=== PATIENT | male | born 1980 | race Hispanic/Latino ===

== ENCOUNTER 2018-04-27 22:31 | Observation (INO) | payer BC ==
--- NOTE | 2018-04-27 23:25 | RAD ---
PA AND LATERAL CHEST: 04/27/18 INDICATION: Cough. COMPARISON: Prior exam dated 03/24/16. FINDINGS: The lungs are clear. The cardiomediastinal silhouette is within normal limits. No acute osseous abnor mality is evident. IMPRESSION: No acute cardiopulmonary abnormality. POS: AL
[2018-04-27] MEDS ORDERED: Dexamethasone 10 MG/ML VIAL ONE (23:55)
[2018-04-28] MEDS ORDERED: Magnesium 2 GM/50 ML BAG (IN WATER) ONE ×2 (00:09)
[2018-04-28 00:23] LABS: #Basophils 0.2 thou/uL (0.0-0.2); #Eosinphils 0.1 thou/uL (0.0-0.7); #Lymphocytes 4.9 thou/uL (1.20-3.40); #Monocytes 2.1 thou/uL (0.11-0.59); #Neutrophils 9.6 thou/uL (1.40-6.50); %Eosinophils 0.3 % (0.0-10.0); %Monocytes 12.3 % (0.0-10.0); %Neutrophils 57.4 % (42.0-75.0); Hemoglobin 13.9 g/dL (14.0-18.0); Mean Corpuscular HGB CONC 32.6 g/dL (32.0-36.0); Mean Corpuscular Hemoglobin 29.1 pg (27.0-31.0); Mean Corpuscular Volume 89.1 fL (78.0-98.0); Mean Platelet Volume 7.7 fL (7.4-10.4); Platelet Count 220 thou/uL (130-400); Red Blood Cell (RBC) Count 4.77 mill/uL (4.70-6.10); White Blood Cell (WBC) Count 16.8 thou/uL (4.8-10.8)
[2018-04-28 00:47] LABS: ALT (SGPT) 17 U/L (8-55); AST (SGOT) 17 U/L (5-34); Albumin 4.2 g/dL (3.5-5.0); Alkaline Phosphatase 40 U/L (40-150); Anion Gap 13 mmol/L (10-20); BUN (Urea Nitrogen) 15 mg/dL (8.9-20.6); Bilirubin, Total 0.4 mg/dL (0.2-1.2); CK (CPK) 281 U/L (30-200); Calc. Creatinine Clearance 0 mL/min (70-130); Calcium 9.1 mg/dL (7.8-10.44); Carbon Dioxide 25 mmol/L (22-29); Chloride 106 mmol/L (98-107); Estimated GFR-MDRD 78; Glucose 77 mg/dL (70-105); Potassium 3.8 mmol/L (3.5-5.1); Sodium 140 mmol/L (136-145)
[2018-04-28 00:52] LABS: Globulin 2.3 g/dL (2.4-3.5); Protein, Total 6.5 g/dL (6.0-8.3)
[2018-04-28] MEDS ORDERED: Acetaminophen 325 MG TAB PO PRN (02:11)
[2018-04-28] MEDS ORDERED: Ondansetron ODT 4 MG TAB SL PRN (02:11)
[2018-04-28] MEDS ORDERED: Sodium Chloride 0.9% 1,000 ML IV SCH (02:11)
[2018-04-28] MEDS ORDERED: Ondansetron PF 4 MG/2 ML Vial IVP PRN (02:11)
[2018-04-28 02:16] VITALS: BMI 30.2
[2018-04-28] MEDS ORDERED: Senokot S 8.6-50 MG TAB PO PRN (02:57)
[2018-04-28] MEDS: Sodium Chloride 0.9% 1,000 ML IV SCH ×2 (03:50→17:32)
[2018-04-28 04:15] LABS: #Basophils 0.1 thou/uL (0.0-0.2); #Lymphocytes 1.9 thou/uL (1.20-3.40); #Monocytes 0.6 thou/uL (0.11-0.59); #Neutrophils 12.8 thou/uL (1.40-6.50); %Basophils 0.5 % (0.0-1.0); %Eosinophils 0.1 % (0.0-10.0); %Lymphocytes 12.1 % (21.0-51.0); %Neutrophils 83.3 % (42.0-75.0); Hemoglobin 13.4 g/dL (14.0-18.0); Mean Corpuscular HGB CONC 32.3 g/dL (32.0-36.0); Mean Corpuscular Hemoglobin 29.4 pg (27.0-31.0); Mean Platelet Volume 8.2 fL (7.4-10.4); Platelet Count 209 thou/uL (130-400); Red Blood Cell (RBC) Count 4.57 mill/uL (4.70-6.10); White Blood Cell (WBC) Count 15.4 thou/uL (4.8-10.8)
--- NOTE | 2018-04-28 04:17 | HP ---
PRIMARY CARE PROVIDER: None. CHIEF COMPLAINT: Cough. HISTORY OF PRESENT ILLNESS: Mr. Vasques is a pleasant 37-year-old gentleman who was seen at [facility] on 04/28/2018. He reports having cough and wheezing over the last 2 weeks. This was preceded by what appears to be flu-like illness in his family members. The family members recovered but patient continues to have cough. He reports shortness of breath with exertion. He reports that the cough is nonproductive. He was seen by a healthcare provider at his workplace and was started on Medrol Dosepak. He reports that he continues to have cough and wheezing and therefore presented to the emergency room. He denies any fevers or chills at this time. He denies any chest pain. REVIEW OF SYSTEMS: All other systems were reviewed and found to be negative. PAST MEDICAL HISTORY: Significant for asthma. The patient reports that he has not been diagnosed with COPD in the past. PAST SURGICAL HISTORY: None. PSYCHIATRIC HISTORY: None. SOCIAL HISTORY: The patient smokes half a pack of cigarettes a day. He denies alcohol use or recreational drug use. FAMILY HISTORY: Significant for asthma in his father. ALLERGIES: PENICILLIN. CURRENT MEDICATIONS: Advair HFA as needed. PHYSICAL EXAMINATION: GENERAL: Mr. Vasques is awake and alert, not in acute distress. He is obese, with a BMI of 30.3. VITAL SIGNS: Blood pressure is 148/89, pulse 106, respiratory rate 20, and oxygen saturation 98% on room air. He is afebrile. EYES: No scleral icterus. No conjunctival pallor. ENT: Moist mucosal membranes. No oropharyngeal erythema or exudates. NECK: Supple, nontender, trachea is midline. RESPIRATORY: Accessory muscles of breathing are not active. Chest wall movements are symmetric bilaterally. LUNGS: Reveals diffuse expiratory wheeze. ABDOMEN: Soft, nontender, bowel sounds are heard. No hepatomegaly, no splenomegaly. CARDIOVASCULAR: S1 and S2 are heard, tachycardic and regular. Peripheral pulses palpable. No carotid bruit, no pericardial rub. NEUROLOGIC: Cranial nerves II through XII intact, deep tendon reflexes are 2+. MUSCULOSKELETAL: Power is 5/5 in all 4 extremities. SKIN: Multiple tattoos. LYMPHATIC: No cervical lymphadenopathy. PSYCHIATRIC: Normal mood, normal affect. Patient is oriented to person, place , and time. LABORATORY AND DIAGNOSTIC DATA: Mr. Vasques's labs and investigations were reviewed. I reviewed his chest x-ray, which does not show any pulmonary infiltrates. He has elevated CK of 281, otherwise unremarkable comprehensive metabolic profile, leukocytosis with 16,800 white cells, of which 57% are neutrophils, normocytic anemia with hemoglobin 13.9 and normal platelet count. ASSESSMENT AND PLAN: Mr. Vasques is a pleasant 37-year-old gentleman who was seen at [facility] on 04/28/2018. His problem list includes: 1. Asthma exacerbation: Mr. Vasques is presenting with asthma exacerbation, likely triggered by viral illness. At this point in time, he also has leukocytosis and superimposed bacterial infection cannot be ruled out, although the leukocytosis could be secondary to steroid use as well. He will be admitted to the hospital for further management including oxygen, steroids, bronchodilators, and antibiotics. He has received a dose of magnesium in the emergency room. We will repeat magnesium if needed. 2. Tobacco abuse: Patient has been counseled regarding tobacco cessation, we will start patient on nicotine replacement therapy. LEVEL OF RISK: Moderate. LEVEL OF COMPLEXITY: Moderate. MTDD
[2018-04-28 04:35] LABS: Anion Gap 12 mmol/L (10-20); BUN (Urea Nitrogen) 15 mg/dL (8.9-20.6); Calc. Creatinine Clearance 134 mL/min (70-130); Calcium 8.7 mg/dL (7.8-10.44); Carbon Dioxide 24 mmol/L (22-29); Chloride 106 mmol/L (98-107); Estimated GFR-MDRD 83; Glucose 154 mg/dL (70-105); Potassium 3.8 mmol/L (3.5-5.1); Sodium 138 mmol/L (136-145)
[2018-04-28] MEDS: Nicotine 14 MG PATCH TD SCH (06:09)
[2018-04-28] MEDS: Benzonatate 100 MG CAP PO SCH ×3 (08:40→20:38)
[2018-04-28] MEDS: Enoxaparin Sodium 40 MG/0.4 ML SYRINGE SC SCH (08:40)
[2018-04-28] MEDS: Chloraseptic Spray 180 ml Bottle PO PRN ×2 (12:35→17:33)
--- NOTE | 2018-04-28 12:53 | PDOC.PN ---
- Subjective Encounter Start Date: 04/28/18 Encounter Start Time: 12:00 Subjective: f/u on admission for asthma exacerbation -: Patient states he is not feeling much better - Objective Vital Signs & Weight: Vital Signs (12 hours) Temp Pulse Resp BP Pulse Ox 04/28/18 11:54 98.4 F 94 18 126/58 L 97 04/28/18 08:19 96 04/28/18 08:18 82 16 04/28/18 07:35 98.5 F 91 18 118/59 L 97 04/28/18 04:43 84 20 95 04/28/18 04:32 98.7 F 95 21 H 111/61 97 04/28/18 02:16 79 16 98 04/28/18 01:48 97.9 F 85 22 H 110/57 L 95 Weight Weight 95.708 kg I&O: 04/27/18 04/28/18 04/29/18 06:59 06:59 06:59 Intake Total 690 301 Output Total 575 1000 Balance 115 -699 Result Diagrams: 04/28/18 03:36 04/28/18 03:36 Phys Exam - Physical Examination HEENT: PERRLA, moist MMs Neck: no nodes, no JVD Respiratory: wheezing present diffuse expiratory wheezes, diminished BS in bases Cardiovascular: RRR, no significant murmur Gastrointestinal: soft, non-tender Musculoskeletal: no edema, pulses present Neurological: non-focal, normal sensation Lymphatic: no nodes Psychiatric: normal affect, A&O x 3 Skin: no rash, normal turgor Dx/Plan (1) Acute asthmatic bronchitis Code(s): J45.909 - UNSPECIFIED ASTHMA, UNCOMPLICATED Status: Acute (2) Tobacco abuse Code(s): Z72.0 - TOBACCO USE Status: Chronic - Plan cont current plan of care, continue antibiotics, respiratory therapy -: Neb txs, steroids, levaquin ordered -: Will continue to monitor, review labs * .
--- NOTE | 2018-04-28 13:52 | PDOC.EVN ---
Event Note - Event Note Event Note: patient reviewed with D Chente [employer], agree with current management.
[2018-04-29] MEDS: Nicotine 14 MG PATCH TD SCH (05:34)
[2018-04-29] MEDS: Sodium Chloride 0.9% 1,000 ML IV SCH ×2 (05:34→09:18)
[2018-04-29 09:15] LABS: ALT (SGPT) 16 U/L (8-55); AST (SGOT) 17 U/L (5-34); Albumin 3.8 g/dL (3.5-5.0); Alkaline Phosphatase 50 U/L (40-150); Anion Gap 11 mmol/L (10-20); BUN (Urea Nitrogen) 13 mg/dL (8.9-20.6); Bilirubin, Total 0.2 mg/dL (0.2-1.2); Calc. Creatinine Clearance 136 mL/min (70-130); Calcium 8.8 mg/dL (7.8-10.44); Carbon Dioxide 24 mmol/L (22-29); Chloride 109 mmol/L (98-107); Estimated GFR-MDRD 84; Globulin 2.5 g/dL (2.4-3.5); Glucose 165 mg/dL (70-105); Potassium 4.3 mmol/L (3.5-5.1); Protein, Total 6.3 g/dL (6.0-8.3); Sodium 140 mmol/L (136-145)
[2018-04-29] MEDS: Enoxaparin Sodium 40 MG/0.4 ML SYRINGE SC SCH (09:17)
[2018-04-29] MEDS: Benzonatate 100 MG CAP PO SCH (09:17)
[2018-04-29 09:29] LABS: Band 3 % (5-11); Hemoglobin 13.4 g/dL (14.0-18.0); Hypersemented Neutrophil SLIGHT; Lymphocytes 12 % (21-51); MDiff Complete? YES; Mean Corpuscular HGB CONC 31.3 g/dL (32.0-36.0); Mean Corpuscular Hemoglobin 28.5 pg (27.0-31.0); Mean Corpuscular Volume 91.1 fL (78.0-98.0); Mean Platelet Volume 8.3 fL (7.4-10.4); Monocytes 2 % (0-10); Neutrophil 83 % (42-75); Nucleated RBC 1 % (0); Platelet Count 225 thou/uL (130-400); White Blood Cell (WBC) Count 24.9 thou/uL (4.8-10.8)
[2018-04-29 10:22] LABS: Hemoglobin A1c 5.3 % (4.0-6.0)
[2018-04-29 11:48] VITALS: BP 134/72; TEMP 98.3
--- NOTE | 2018-04-29 16:01 | DIS ---
DATE OF ADMISSION: 04/27/2018 DATE OF DISCHARGE: 04/29/2018 PRIMARY CARE PHYSICIAN: None. CONSULTATIONS: None. CODE STATUS: FULL. PROCEDURES: The patient had a chest x-ray on 04/27/2018 which showed no acute cardiopulmonary abnormality. DISCHARGE DIAGNOSES: 1. Asthmatic bronchitis. 2. Tobacco abuse. REVIEW OF SYSTEMS: The patient was seen by me on date of discharge, has some diffuse wheezing. He reports he feels much better. Denies fever, chills, abdominal pain. Reports cough is improved. All other systems are reviewed and found negative. PHYSICAL EXAMINATION: VITAL SIGNS: Temperature 98.2, pulse is 93, respiration 20, patient is 94% on room air, blood pressure is 126/65. GENERAL: Patient is alert, oriented, sitting in a chair about the bed, reports feeling much better. HEAD: Normocephalic. EYES: Pupils are normal, reactive to light. Extraocular muscles are intact. ENT: Mucous membranes are moist. Mild oropharyngeal erythema, no exudates. NECK: Supple, nontender. Trachea is midline. RESPIRATORY: Diffuse scattered wheezes expiratory. Accessory muscles are not active. Chest wall is symmetric. ABDOMEN: Soft, nontender. Bowel sounds are heard x4. CARDIOVASCULAR: S1, S2. Peripheral pulses are palpable. NEUROLOGIC: Cranial nerves II-XII are intact. MUSCULOSKELETAL: Range of motion is normal in all 4 extremities. Sensation and pulses are intact. SKIN: Multiple tattoos, otherwise normal in color. Warm and dry. PSYCHIATRIC: Patient is oriented to person, place and time. Affect is normal. HOSPITAL COURSE: Mr. Vasques is a pleasant 29-year-old gentleman who was seen at the [facility] ED on 04/28/2018. He reports having cough and wheezing over the last 2 weeks. Reports it started primarily with a flu-like illness which his family members had as well. Reports they have recovered, but he continues to have a cough. He reports some shortness of breath with exertion. Reports the cough is nonproductive. He reports he went to see a primary care provider at his workplace and he was given a Medrol Dosepak. He has finished 3 days of that. When he presented to the emergency room, he denied any chest pain, any fevers or chills at that time. He reports he was using 10-12 neb treatments on the day before admission which concerned him. Reports he needs to have 1 or 2 neb tx sporadically per month. 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 During hospital, he was admitted to the observation unit and started on IV Levaquin, steroids, and neb treatments. Today, he reports he feels much better, breathing is much easier. Cough has lessened. Discharge plan discussed with Dr. Ronquillo, who agrees to discharge home today. ALLERGIES: PENICILLIN. CURRENT MEDICATIONS: Include Advair HFA as needed. Normally has albuterol nebulizer solution at home which he reports he will need another box. He will be sent home with three new prescriptions; one Levaquin 750 mg p.o. daily x4 days, prednisone 40 mg p.o. q.a.m. x4 days. Refill on his albuterol solution to use q.4 p.r.n. Recommend using q.4 for the next 2 days and then can go back to using as needed. DISPOSITION/CONDITION: Stable and patient will be discharged to home. The patient was instructed to find a primary care physician and follow up within the next week. HORTENCIA
== END 2018-04-29 12:49 | disposition home or self-care (01) ==
LOC: ERS 22:31 → 2SW 04-28 00:34
PROVIDERS: ADMIT Internal Medicine; ATTEND Internal Medicine
DX: J45.901 Unspecified asthma with (acute) exacerbation (principal); F17.210 Nicotine dependence, cigarettes, uncomplicated; Z79.52 Long term (current) use of systemic steroids; Z88.0 Allergy status to penicillin; Z91.018 Allergy to other foods
CPT/HCPCS: 36415; 71046; 80053; 82550; 83036; 85025; 87081; 87430; 90471; 90732; 94640; 96361; 96365; 96366; 96367; 96375; 96376; 99406; G0009; G0378; J1100; J1650; J1956; J2920; J7620